=== PATIENT | male | born 1950 | race Caucasian/White ===

== ENCOUNTER 2016-06-26 19:03 | Inpatient (IN) | payer OTHER ==
[~2016-06-26] VITALS: Ht 190.5 cm; Wt 83.7 kg
[2016-06-26 21:17] LABS: HEMOGLOBIN 17.4 gm/dl (14.0-17.5); RED BLOOD COUNT 5.5 M/UL (4.20-5.50); WHITE BLOOD COUNT 7.7 K/UL (4.5-11.0)
[2016-06-27] MEDS ORDERED: CIPRO XR 500 M500 MG PO (01:44)
[2016-06-27] MEDS ORDERED: ZOFRAN 8 MG TAB8 MG PO (01:45)
[2016-06-27] MEDS ORDERED: L-METHYLFOLATE15 M1 PO (01:46)
[2016-06-27] MEDS ORDERED: LEVOTHYROXINE100 MCG PO (01:47)
[2016-06-27] MEDS ORDERED: DONEPEZIL HCL10 MG PO (01:47)
[2016-06-27] MEDS ORDERED: PROPRANOLOL HCL10 MG PO (01:48)
[2016-06-27] MEDS ORDERED: OMEPRAZOLE20 M1 PO (01:48)
[2016-06-27] MEDS ORDERED: RISPERIDONE0.5 MG PO (01:49)
[2016-06-27] MEDS ORDERED: SIMVASTATIN40 MG PO (01:49)
[2016-06-27] MEDS ORDERED: VENLAFAXINE HC150 M1 PO (01:50)
[2016-06-27] MEDS ORDERED: PLAVIX 75 MG TA75 MG PO (01:50)
[2016-06-27] MEDS ORDERED: FISH OIL 1,0001 EACH PO (01:51)
[2016-06-27] MEDS ORDERED: NAMENDA10 MG PO (01:51)
[2016-06-27] MEDS ORDERED: B-COMPLEX WITH1 EACH PO (01:52)
[2016-06-28 06:32] LABS: HEMOGLOBIN 15.4 gm/dl (14.0-17.5); RED BLOOD COUNT 4.92 M/UL (4.20-5.50); WHITE BLOOD COUNT 9.4 K/UL (4.5-11.0)
[2016-06-28 06:59] LABS: BUN/CREATININE RATIO 28 (0-10)
[2016-06-29 08:01] LABS: HEMOGLOBIN 16.8 gm/dl (14.0-17.5); RED BLOOD COUNT 5.31 M/UL (4.20-5.50); WHITE BLOOD COUNT 10.4 K/UL (4.5-11.0)
[2016-06-29 08:14] LABS: BUN/CREATININE RATIO 26 (0-10)
[2016-06-30 07:57] LABS: BUN/CREATININE RATIO 26 (0-10)
[2016-06-30 14:53] LABS: BUN/CREATININE RATIO 26 (0-10)
[2016-06-30] MEDS ORDERED: VALIUM 5 MG TAB5 MG PO (19:29)
[2016-06-30] MEDS ORDERED: TYLENOL 325MG325 MG PO (19:31)
[2016-06-30] MEDS ORDERED: BENADRYL 25MG C25 MG PO (19:33)
[2016-06-30] MEDS ORDERED: PREDNISONE 20 M20 MG PO (19:38)
[2016-06-30] MEDS ORDERED: RANITIDINE HCL150 M1 PO (19:39)
== END 2016-06-30 20:10 | disposition home or self-care (01) | DRG 682 ==
LOC: ER1 19:03 → ZEROF 23:38 → M/S 23:38
PROVIDERS: Internal Medicine Infectious Disease; Specialist/Technologist Athletic Trainer; ADMIT Internal Medicine
DX: N17.9 Acute kidney failure, unspecified (principal); G93.41 Metabolic encephalopathy; E87.2 Acidosis; E87.1 Hypo-osmolality and hyponatremia; E86.0 Dehydration; E03.9 Hypothyroidism, unspecified; G30.0 Alzheimer's disease with early onset; F02.80 Dementia in other diseases classified elsewhere, unspecified severity, without behavioral disturbance, psychotic disturbance, mood disturbance, and anxiety; B34.9 Viral infection, unspecified; R11.2 Nausea with vomiting, unspecified; I65.22 Occlusion and stenosis of left carotid artery; I71.2 Thoracic aortic aneurysm, without rupture; L50.9 Urticaria, unspecified; G25.0 Essential tremor; Z95.820 Peripheral vascular angioplasty status with implants and grafts; Z87.891 Personal history of nicotine dependence; Z79.02 Long term (current) use of antithrombotics/antiplatelets; Z79.899 Other long term (current) drug therapy; Z88.0 Allergy status to penicillin; Z98.890 Other specified postprocedural states; Z83.3 Family history of diabetes mellitus; Z82.49 Family history of ischemic heart disease and other diseases of the circulatory system
CPT/HCPCS: 36415; 70450; 71010; 74000; 76705; 80048; 80053; 80307; 82140; 82550; 82553; 82607; 83605; 83874; 84439; 84443; 84484; 85025; 85610; 85730; 86140; 86618; 86780; 86900; 86901; 87040; 93005; 96361; 96374; 99285; C9113; G0480; J1720; J2060; J2405; J2930; J3411; J3475; J7030; Q0163